=== PATIENT | female | born 1990 | race Caucasian/White ===

== ENCOUNTER 2016-08-17 17:43 | Emergency (ER) | payer OTHER ==
[~2016-08-17] VITALS: Ht 162.6 cm; Wt 64.4 kg
[2016-08-17 17:48] VITALS: BP 119/65
== END 2016-08-17 18:24 | disposition home or self-care (01) ==
LOC: ED 17:43
DX: H60.502 Unspecified acute noninfective otitis externa, left ear (principal); J02.9 Acute pharyngitis, unspecified

== ENCOUNTER 2016-11-12 11:32 | Emergency (ER) | payer OTHER ==
[~2016-11-12] VITALS: Ht 162.6 cm; Wt 65.0 kg
[2016-11-12 12:48] VITALS: BP 116/77
== END 2016-11-12 13:13 | disposition home or self-care (01) ==
LOC: ED 11:32
DX: N39.0 Urinary tract infection, site not specified (principal)
CPT/HCPCS: J0696

== ENCOUNTER 2017-03-07 11:33 | Emergency (ER) | payer OTHER ==
[~2017-03-07] VITALS: Ht 162.6 cm; Wt 68.5 kg
[2017-03-07 11:43] VITALS: BP 120/70
== END 2017-03-07 14:32 | disposition home or self-care (01) ==
LOC: ED 11:33
DX: S29.012A Strain of muscle and tendon of back wall of thorax, initial encounter (principal); X58.XXXA Exposure to other specified factors, initial encounter; Y93.89 Activity, other specified; Y92.89 Other specified places as the place of occurrence of the external cause; Y99.8 Other external cause status
CPT/HCPCS: 72072

== ENCOUNTER 2017-03-24 12:19 | Emergency (ER) | payer OTHER ==
[~2017-03-24] VITALS: Ht 162.6 cm; Wt 66.2 kg
[2017-03-24 14:15] VITALS: BP 105/65
== END 2017-03-24 14:15 | disposition home or self-care (01) ==
LOC: ED 12:19
DX: R51 Headache (principal)
CPT/HCPCS: J8597; Q0163

== ENCOUNTER 2017-06-28 07:42 | Inpatient (IN) | payer OTHER ==
[~2017-06-28] VITALS: Ht 162.6 cm; Wt 62.8 kg
[2017-06-28 07:51] VITALS: Ht 162.6 cm; Wt 62.8 kg
[2017-06-28 09:09] LABS: BASOPHIL % 0.4 % (0-2); PLATELET COUNT 265 x10^3mcL (130-400); RED CELL DISTRIBUTION WIDTH 12.4 % (11.5-14.5)
[2017-06-28 09:15] LABS: CARBON DIOXIDE 28.1 mmol/L (21-32); CHLORIDE SERUM 106 mmol/L (98-107); CREATININE SERUM 0.6 mg/dL (0.6-1.0); GFR1 > 60 mL/min; GLUCOSE SERUM 66 mg/dL (74-106); POTASSIUM SERUM 3.6 mmol/L (3.5-5.1); SODIUM SERUM 143 mmol/L (136-145)
[2017-06-28 09:20] LABS: ALBUMIN 4.1 g/dL (3.4-5.0); ALKALINE PHOSPHATASE 57 U/L (46-116); ALT/SGPT 29 U/L (14-59); AMYLASE 43 U/L (25-115); AST/SGOT 21 U/L (15-37); BILIRUBIN TOTAL 0.52 mg/dL (0.20-1.00); LIPASE 115 IU/L (73-393); TOTAL PROTEIN, SERUM 7.9 g/dL (6.4-8.2)
[2017-06-28] MEDS ORDERED: MOTRIN PO (12:23)
[2017-06-28 13:19] VITALS: BP 112/73
[2017-06-28 13:35] LABS: MAGNESIUM 2.3 mg/dL (1.8-2.4); PHOSPHOROUS 3.1 mg/dL (2.5-4.9)
[2017-06-28 13:37] LABS: T3 TOTAL 0.89 ng/mL
[2017-06-28 13:40] LABS: UA SPECIFIC GRAVITY <=1.005 (1.005-1.035); microscopic required? YES; urine erythrocyte 3+ (NEGATIVE)
[2017-06-28 14:30] VITALS: BP 112/73
[2017-06-28 14:30] LABS: FREE T4 0.91 ng/dL (0.76-1.46); FREE THYROXINE INDEX 2.5 ug/dL (1.4-4.5); T4(THYROXINE) 7.4 ug/dL (4.7-13.3)
[2017-06-28 17:25] VITALS: BP 94/61
[2017-06-28 21:32] VITALS: BP 100/67
[2017-06-29 06:02] VITALS: BP 95/51
[2017-06-29 06:41] LABS: BASOPHIL % 0.6 % (0-2); PLATELET COUNT 224 x10^3mcL (130-400); RED CELL DISTRIBUTION WIDTH 12.5 % (11.5-14.5)
[2017-06-29 07:02] LABS: CALCIUM 8.2 mg/dL (8.5-10.1); CARBON DIOXIDE 23.5 mmol/L (21-32); CHLORIDE SERUM 107 mmol/L (98-107); CREATININE SERUM 0.5 mg/dL (0.6-1.0); GFR1 > 60 mL/min; GLUCOSE SERUM 81 mg/dL (74-106); MAGNESIUM 2.2 mg/dL (1.8-2.4); PHOSPHOROUS 3.9 mg/dL (2.5-4.9); POTASSIUM SERUM 3.5 mmol/L (3.5-5.1); SODIUM SERUM 142 mmol/L (136-145)
[2017-06-29 09:36] VITALS: BP 90/50
[2017-06-29 11:30] VITALS: BP 123/71
[2017-06-29 13:39] VITALS: BP 99/56
[2017-06-29 17:37] VITALS: BP 85/52
[2017-06-29 20:00] VITALS: BP 107/70
[2017-06-30 05:20] VITALS: BP 98/66
[2017-06-30 07:10] LABS: BASOPHIL % 0.6 % (0-2); PLATELET COUNT 227 x10^3mcL (130-400); RED CELL DISTRIBUTION WIDTH 12.5 % (11.5-14.5)
[2017-06-30 07:23] LABS: CALCIUM 7.9 mg/dL (8.5-10.1); CHLORIDE SERUM 108 mmol/L (98-107); CREATININE SERUM 0.6 mg/dL (0.6-1.0); GFR1 > 60 mL/min; GLUCOSE SERUM 97 mg/dL (74-106); MAGNESIUM 2.1 mg/dL (1.8-2.4); PHOSPHOROUS 3.9 mg/dL (2.5-4.9); POTASSIUM SERUM 3.7 mmol/L (3.5-5.1); SODIUM SERUM 143 mmol/L (136-145)
[2017-06-30 07:45] VITALS: BP 104/62
[2017-06-30 12:47] VITALS: BP 105/68
[2017-06-30] MEDS ORDERED: SUMATRIPTAN SUC50 M1 PO (15:59)
[2017-06-30] MEDS ORDERED: CARL PO (16:00)
[2017-06-30] MEDS ORDERED: PRI20 PO (16:01)
[2017-06-30 16:13] VITALS: BP 105/68
== END 2017-06-30 17:49 | disposition home or self-care (01) | DRG 243 ==
LOC: ED 07:42 → DU 12:17
PROVIDERS: Family Medicine; Internal Medicine Gastroenterology; Specialist
PROC: 0DB78ZX Excision of Stomach, Pylorus, Via Natural or Artificial Opening Endoscopic, Diagnostic (ICD-10-PCS; principal; 2017-06-29 10:00)
DX: K21.9 Gastro-esophageal reflux disease without esophagitis (principal); E83.51 Hypocalcemia; R31.9 Hematuria, unspecified; K29.00 Acute gastritis without bleeding; T39.395A Adverse effect of other nonsteroidal anti-inflammatory drugs [NSAID], initial encounter; G43.909 Migraine, unspecified, not intractable, without status migrainosus
CPT/HCPCS: 43235; 83880; 84439; J1170; J1200; J1610; J1885; J2250; J2310; J2405; J3010; J3490; J7030; Q0092; Q0163; Q9967

== ENCOUNTER 2017-08-02 20:54 | Emergency (ER) | payer OTHER ==
[~2017-08-02] VITALS: Ht 162.6 cm; Wt 66.9 kg
[~2017-08-02 20:54] MED LIST: CARL PO; MOTRIN PO; PRI20 PO; SUMATRIPTAN SUC50 M1 PO
[2017-08-02 21:17] VITALS: Ht 162.6 cm; Wt 66.9 kg
[2017-08-02 22:21] LABS: BASOPHIL % 0.7 % (0-2); PLATELET COUNT 207 x10^3mcL (130-400); RED CELL DISTRIBUTION WIDTH 12.1 % (11.5-14.5)
[2017-08-02 22:31] LABS: CALCIUM 8.8 mg/dL (8.5-10.1); CARBON DIOXIDE 28.1 mmol/L (21-32); CHLORIDE SERUM 104 mmol/L (98-107); CREATININE SERUM 0.6 mg/dL (0.6-1.0); GFR1 > 60 mL/min; GLUCOSE SERUM 83 mg/dL (74-106); POTASSIUM SERUM 3.9 mmol/L (3.5-5.1); SODIUM SERUM 140 mmol/L (136-145)
[2017-08-02 22:36] LABS: ALBUMIN 3.8 g/dL (3.4-5.0); ALKALINE PHOSPHATASE 58 U/L (46-116); ALT/SGPT 25 U/L (14-59); AST/SGOT 15 U/L (15-37); BILIRUBIN TOTAL 0.3 mg/dL (0.20-1.00); TOTAL PROTEIN, SERUM 6.9 g/dL (6.4-8.2)
[2017-08-02 23:01] VITALS: BP 99/66
== END 2017-08-02 23:01 | disposition home or self-care (01) ==
LOC: ED 20:54
PROVIDERS: Emergency Medicine
DX: K62.5 Hemorrhage of anus and rectum (principal)
CPT/HCPCS: 36415

== ENCOUNTER 2017-10-10 20:31 | Emergency (ER) | payer OTHER ==
[~2017-10-10] VITALS: Ht 162.6 cm; Wt 68.9 kg
[2017-10-10 20:52] VITALS: Ht 162.6 cm; Wt 68.9 kg
[2017-10-11 01:16] VITALS: BP 107/58
== END 2017-10-11 01:16 | disposition home or self-care (01) ==
LOC: ED 20:31
DX: N76.0 Acute vaginitis (principal)
CPT/HCPCS: 87491; 87591; Q0092

== ENCOUNTER 2018-06-29 20:28 | Emergency (ER) | payer OTHER ==
[~2018-06-29] VITALS: Ht 162.6 cm; Wt 66.9 kg
[2018-06-29 20:35] VITALS: BP 126/74; Ht 162.6 cm; Wt 66.9 kg
[2018-06-29 21:54] LABS: BASOPHIL % 0.4 % (0-2); PLATELET COUNT 230 x10^3mcL (130-400); RED CELL DISTRIBUTION WIDTH 12.3 % (11.5-14.5)
[2018-06-29 22:03] LABS: CALCIUM 8.7 mg/dL (8.5-10.1); CARBON DIOXIDE 25.5 mmol/L (21-32); CHLORIDE SERUM 103 mmol/L (98-107); CREATININE SERUM 0.4 mg/dL (0.6-1.0); GFR1 > 60 mL/min; GLUCOSE SERUM 86 mg/dL (74-106); POTASSIUM SERUM 3.5 mmol/L (3.5-5.1); SODIUM SERUM 137 mmol/L (136-145)
[2018-06-29 22:07] LABS: ALKALINE PHOSPHATASE 48 U/L (46-116); ALT/SGPT 20 U/L (14-59); AST/SGOT 13 U/L (15-37); BILIRUBIN TOTAL 0.2 mg/dL (0.20-1.00); TOTAL PROTEIN, SERUM 6.9 g/dL (6.4-8.2)
[2018-06-29 22:11] LABS: ALBUMIN 3.1 g/dL (3.4-5.0)
== END 2018-06-29 23:20 | disposition home or self-care (01) ==
LOC: ED 20:28
PROVIDERS: Emergency Medicine
DX: O26.891 Other specified pregnancy related conditions, first trimester (principal); R51 Headache; O23.41 Unspecified infection of urinary tract in pregnancy, first trimester; Z3A.13 13 weeks gestation of pregnancy; Z98.890 Other specified postprocedural states
CPT/HCPCS: J1200; J2765; J7030

== ENCOUNTER 2019-02-22 18:31 | Emergency (ER) | payer OTHER ==
[~2019-02-22] VITALS: Ht 162.6 cm; Wt 70.5 kg
[2019-02-22 18:54] VITALS: Ht 162.6 cm; Wt 70.5 kg
[2019-02-22 19:40] VITALS: BP 102/70
== END 2019-02-22 19:48 | disposition home or self-care (01) ==
LOC: ED 18:31
DX: J06.9 Acute upper respiratory infection, unspecified (principal); Z98.890 Other specified postprocedural states

== ENCOUNTER 2020-01-20 18:55 | Emergency (ER) | payer OTHER ==
[~2020-01-20] VITALS: Ht 162.6 cm; Wt 70.4 kg
[2020-01-20 19:33] VITALS: Ht 162.6 cm; Wt 70.4 kg
[2020-01-20 20:56] VITALS: BP 99/81
== END 2020-01-20 20:49 | disposition home or self-care (01) ==
LOC: ED 18:55
DX: R21 Rash and other nonspecific skin eruption (principal); Z98.890 Other specified postprocedural states

== ENCOUNTER 2020-03-19 14:24 | Emergency (ER) | payer OTHER ==
[~2020-03-19] VITALS: Ht 162.6 cm; Wt 71.7 kg
[2020-03-19 14:34] VITALS: Ht 162.6 cm; Wt 71.7 kg
[2020-03-19 17:22] LABS: CALCIUM 8.9 mg/dL (8.5-10.1); CARBON DIOXIDE 29.1 mmol/L (21-32); CHLORIDE SERUM 103 mmol/L (98-107); CREATININE SERUM 0.6 mg/dL (0.6-1.0); GFR1 > 60 mL/min; GLUCOSE SERUM 92 mg/dL (74-106); POTASSIUM SERUM 3.7 mmol/L (3.5-5.1); SODIUM SERUM 138 mmol/L (136-145)
[2020-03-19 17:27] LABS: ALBUMIN 4.2 g/dL (3.4-5.0); ALKALINE PHOSPHATASE 59 U/L (46-116); ALT/SGPT 29 U/L (14-59); AST/SGOT 17 U/L (15-37); BILIRUBIN TOTAL 0.6 mg/dL (0.20-1.00); LIPASE 80 IU/L (73-393); TOTAL PROTEIN, SERUM 7.6 g/dL (6.4-8.2)
[2020-03-19 17:29] LABS: BASOPHIL % 0.8 % (0-2); PLATELET COUNT 250 x10^3mcL (130-400); RED CELL DISTRIBUTION WIDTH 12.7 % (11.5-14.5)
[2020-03-19 19:38] VITALS: BP 112/52
== END 2020-03-19 19:38 | disposition home or self-care (01) ==
LOC: ED 14:24
PROVIDERS: Emergency Medicine
DX: I88.0 Nonspecific mesenteric lymphadenitis (principal); K52.9 Noninfective gastroenteritis and colitis, unspecified; Z88.6 Allergy status to analgesic agent
CPT/HCPCS: J2270; J2405; J7030